=== PATIENT | female | born 1945 | race Caucasian/White ===

== ENCOUNTER 2017-07-04 08:26 | Observation (INO) | payer MEDICARE, BC ==
[2017-07-01 12:13] LABS: BASOPHILS % (AUTO) 0.3 % (0-1); EOSINOPHILS # (AUTO) 0.1 X10'3 (0-0.9); EOSINOPHILS % (AUTO) 1.9 % (0-6); LYMPHOCYTES % (AUTO) 38.9 % (21-51); MEAN CORPUSCULAR HEMOGLOBIN 30.2 PG (27.0-31.0); MEAN CORPUSCULAR HGB CONC 34.1 % (33.0-36.5); MEAN CORPUSCULAR VOLUME 88.5 FL (78-98); MEAN PLATELET VOLUME 8.5 FL (7.4-10.4); MONOCYTES # (AUTO) 0.3 X10'3 (0-0.9); MONOCYTES % (AUTO) 6.3 % (2-12); NEUTROPHILS # (AUTO) 2.7 X10'3 (1.8-7.7); NEUTROPHILS % (AUTO) 52.6 % (42-75); PRE OP HEMATOCRIT 39.6 % (35.0-45.0); PRE OP HEMOGLOBIN 13.5 g/dL (12.0-16.0); PRE OP PLATELET COUNT 243 X10'3 (140-440); RED BLOOD COUNT 4.48 X10'6 (4.20-5.60); RED CELL DISTRIBUTION WIDTH 13.1 % (11.5-14.5)
[2017-07-01 12:33] LABS: CLARITY,URINE CLEAR (Clear); COLOR,URINE YELLOW (Yellow); GLUCOSE, URINE NEGATIVE (Neg); KETONES,URINE NEGATIVE (Neg); LEUKOCYTE ESTERASE ,URINE NEGATIVE (Neg); NITRITES, URINE NEGATIVE (Neg); OCCULT BLOOD,URINE TRACE-INTACT (Neg); PROTEIN,URINE NEGATIVE (Neg); UROBILINOGEN,URINE 0.2 E.U/dL (0.2-1.0)
[2017-07-01 12:36] LABS: ALBUMIN 3.6 G/DL (3.4-5.0); ALBUMIN/GLOBULIN RATIO 1.2 (1.1-1.5); ALKALINE PHOSPHATASE 71 IU/L (46-116); BLOOD UREA NITROGEN 14 MG/DL (7-18); BUN/CREATININE RATIO 15.6 (6.6-38.0); CALCIUM 8.5 MG/DL (8.5-10.1); CHLORIDE 106 MMOL/L (99-107); PRE OP ALT 24 U/L (30-65); PRE OP ANION GAP 4 (8-16); PRE OP AST 19 U/L (10-37); PRE OP BILIRUB, TOTAL 0.4 MG/DL (0.0-1.0); PRE OP GLUCOSE 82 MG/DL (70-104); PRE OP POTASSIUM 3.9 MMOL/L (3.4-5.1); PRE OP SODIUM 142 MMOL/L (135-145); TOTAL CARBON DIOXIDE 31.8 MMOL/L (24-32); TOTAL PROTEIN 6.7 G/DL (6.4-8.2); eGFR 62 ML/MIN
[2017-07-01 12:37] LABS: UA COLLECTION TYPE CLN CATCH MIDSTREAM
[2017-07-01 12:49] LABS: WBC,URINE 0-4 /HPF (0-4)
[2017-07-01 12:50] LABS: BACTERIA,URINE FEW /HPF (Neg); SQUAMOUS EPITHELIAL CELL,UR FEW /LPF (FEW); YEAST FEW /HPF (NEGATIVE)
[2017-07-04] VITALS (18 sets, daily range): BP systolic 111–152; BP diastolic 51–86
[~2017-07-04] VITALS: Ht 162.6 cm; Wt 65.8 kg
[~2017-07-04 08:26] MED LIST: ASCO500C15 PO; CALC600T12 PO; CELE-193 PO; ESTR1.5T5 PO; GLUC100017 PO; POLY17PO10 PO; RED600TA PO; SERT50TA PO; TRAM50TA2 PO; VANCOMYCIN INJ 1000 MG in NORMAL SALINE 250ml IV.SOLN IV ONE; [UNRECOGNIZED DRUG - CODE] PO; cefazolin/dext.iso 2gm/50ml 50 ML IV ONE; famotidine 20mg tablet PO ONE
[2017-07-04] MEDS ORDERED: BUPIVAcaine/PF 2.5 mg/ml (0.25%) 30ml vial ONE (09:04)
[2017-07-04] MEDS: ringers solution, lacted 1,000 ML IV SCH ×2 (09:05→14:15)
[2017-07-04] MEDS ORDERED: LIDOcaine 1% (10mg/ml) 2ml vial ONE (09:23)
[2017-07-04] MEDS ORDERED: ROPIVAcaine 0.5% (5mg/ml) 30ml vial ONE (10:05)
[2017-07-04] MEDS ORDERED: fentaNYL/PF 50MCG/1 ML 2ML syringe ONE (10:09)
[2017-07-04] MEDS ORDERED: propofol inj 20 ML IV ONE (10:10)
[2017-07-04] MEDS ORDERED: dexamethasone sod phosphate 4mg/ml inj. ONE (10:10)
[2017-07-04] MEDS ORDERED: midazolam 2 mg/2 ml injection ONE (10:10)
[2017-07-04] MEDS ORDERED: LIDOcaine 1%/PF (10mg/ml) 5ml vial ONE (10:10)
[2017-07-04] MEDS ORDERED: ondansetron/PF 4mg/2ml inj ONE (10:10)
[2017-07-04] MEDS ORDERED: sevoflurane 250ml liquid IH ONE (10:15)
[2017-07-04] MEDS ORDERED: ringers solution, lacted 1,000 ML IV SCH (11:03)
[2017-07-04] MEDS ORDERED: labetalol 5mg/ml 20ml inj. IV PRN (11:05)
[2017-07-04] MEDS ORDERED: fentaNYL/PF 50MCG/1 ML 2ML syringe IV PRN ×2 (11:05)
[2017-07-04] MEDS ORDERED: ondansetron/PF 4mg/2ml inj IV PRN ×2 (11:05→12:40)
[2017-07-04] MEDS ORDERED: hydrALAZINE 20mg/ml inj. IV PRN (11:05)
[2017-07-04] MEDS ORDERED: labetalol 5mg/ml 20ml inj. IV ONE (12:08)
[2017-07-04] MEDS ORDERED: ceFAZolin 1000mg inj ONE (12:18)
[2017-07-04] MEDS: potassium cl 20mEq in 1/2 NS 1,000 ML IV SCH ×2 (12:39→20:39)
[2017-07-04] MEDS ORDERED: naloxone 0.4 mg/ml inj IV PRN (12:40)
[2017-07-04] MEDS ORDERED: diphenhydrAMINE 25mg capsule PO PRN ×2 (12:40)
[2017-07-04] MEDS ORDERED: magnesium hydroxide 30ml (MOM) UD suspension PO PRN (12:40)
[2017-07-04] MEDS ORDERED: mag hydrox/Alum hydrox/simeth 30ml oral suspension PO PRN (12:40)
[2017-07-04] MEDS ORDERED: HYDROcodone/acetaminophen 10/325mg tab PO PRN (12:40)
[2017-07-04] MEDS ORDERED: CADD PCA waste documentation MC PRN (12:40)
[2017-07-04] MEDS ORDERED: metoclopramide 5 mg/ml inj IV PRN (12:40)
[2017-07-04] MEDS ORDERED: bisacodyl 10mg suppository rectal RC PRN (12:40)
[2017-07-04] MEDS ORDERED: acetaminophen 325mg tablet PO PRN (12:40)
[2017-07-04] MEDS: HYDROmorphone/NS 1 mg/ml CADD 50 ML IV SCH ×7 (13:00→23:00)
[2017-07-04] MEDS: cefazolin 1gm/NS 100mL 100 ML IV SCH ×2 (16:15→23:52)
[2017-07-04] MEDS ORDERED: vancomycin/NS 1 GM ADD-VANTAGE 250 ML IV SCH (20:00)
[2017-07-04] MEDS: sennosides/docusate sodium tablet PO SCH (20:00)
[2017-07-04] MEDS: celeCOXIB 100mg capsule PO SCH (20:26)
[2017-07-04] MEDS: ascorbic acid 500mg tablet PO SCH (20:26)
[2017-07-04] MEDS ORDERED: sennosides 8.6mg tablet PO SCH (21:00)
[2017-07-05] MEDS: HYDROmorphone/NS 1 mg/ml CADD 50 ML IV SCH ×3 (01:00→05:00)
[2017-07-05 02:06] VITALS: BP 121/53
[2017-07-05] MEDS: potassium cl 20mEq in 1/2 NS 1,000 ML IV SCH ×2 (02:34→12:39)
[2017-07-05] MEDS: HYDROcodone/acetaminophen 10/325mg tab PO PRN ×2 (05:06→09:33)
[2017-07-05 06:00] VITALS: BP 129/62
[2017-07-05 06:50] LABS: ANION GAP 7 (8-16); CHLORIDE 108 MMOL/L (99-107); POTASSIUM 3.9 MMOL/L (3.5-5.1); SODIUM 143 MMOL/L (135-145)
[2017-07-05 06:52] LABS: BASOPHILS % (AUTO) 0.3 % (0-1); EOSINOPHILS # (AUTO) 0.1 X10'3 (0-0.9); HEMATOCRIT 32.1 % (35.0-45.0); HEMOGLOBIN 10.9 g/dl (12.0-16.0); LYMPHOCYTES # (AUTO) 1.7 X10'3 (1.1-4.8); LYMPHOCYTES % (AUTO) 22.9 % (21-51); MEAN CORPUSCULAR HEMOGLOBIN 30.3 PG (27.0-31.0); MEAN CORPUSCULAR HGB CONC 34.1 % (33.0-36.5); MEAN CORPUSCULAR VOLUME 89.1 FL (78-98); MONOCYTES # (AUTO) 0.6 X10'3 (0-0.9); MONOCYTES % (AUTO) 7.8 % (2-12); PLATELET COUNT 189 X10'3 (140-440); RED BLOOD COUNT 3.61 X10'6 (4.20-5.60); RED CELL DISTRIBUTION WIDTH 13.1 % (11.5-14.5); WHITE BLOOD COUNT 7.4 X10'3 (4.5-11.0)
[2017-07-05] MEDS ORDERED: multivitamins, therapeutics tablet PO SCH (08:00)
[2017-07-05] MEDS ORDERED: celeCOXIB 100mg capsule PO SCH (08:00)
[2017-07-05] MEDS ORDERED: ESTROPIPATE 1.5 MG TABLET PO SCH (08:00)
[2017-07-05] MEDS ORDERED: sertraline 50mg tablet PO SCH (08:00)
[2017-07-05] MEDS: ascorbic acid 500mg tablet PO SCH (08:19)
[2017-07-05] MEDS: celeCOXIB 100mg capsule PO SCH (08:19)
[2017-07-05] MEDS: sennosides/docusate sodium tablet PO SCH (08:19)
[2017-07-05] MEDS ORDERED: acetaminophen 325mg tablet PO PRN (08:30)
[2017-07-05 10:12] VITALS: BP 117/61
== END 2017-07-05 13:30 | disposition home or self-care (01) ==
LOC: PAS 08:26 → INTOOBSV 13:58 → ORTHO 4S 13:58
PROVIDERS: ADMIT Orthopaedic Surgery; ATTEND Orthopaedic Surgery
DX: S83.512A Sprain of anterior cruciate ligament of left knee, initial encounter (principal); S83.115A Anterior dislocation of proximal end of tibia, left knee, initial encounter; E78.5 Hyperlipidemia, unspecified; D50.0 Iron deficiency anemia secondary to blood loss (chronic); V89.2XXA Person injured in unspecified motor-vehicle accident, traffic, initial encounter; Y93.89 Activity, other specified; Y92.488 Other paved roadways as the place of occurrence of the external cause; Y99.8 Other external cause status
CPT/HCPCS: 29888; 36415; 80051; 80053; 81001; 85025; 93005; 96365; 96367; 96375; 97116; 97161; 97530; A6449; C1713; G0378; J0690; J1100; J1170; J2001; J2250; J2405; J2704; J2795; J3010; J3370; J3490; J7030; J7120; L1832; A6250; A7000